=== PATIENT | male | born 1950 | race Hispanic/Latino ===

== ENCOUNTER → 2019-01-13 | Outpatient (CLI) | payer MEDICARE ==
[~2019-01-13] MED LIST: LOSARTAN POTASS25 MG PO; NOVOLIN N100 UNIT/1 SC; TENOFOVIR PO
[2019-01-13 13:13] LABS: BASOPHILS % 0.3 % (0.0-1.0); EOSINOPHILS # (AUTO) 0.1 (0.0-0.4); EOSINOPHILS % 3.4 % (0.0-6.0); HEMATOCRIT 33.3 % (38.2-49.6); HEMOGLOBIN 9.5 g/dL (14.0-18.0); LYMPHOCYTES # (AUTO) 0.9 (1.0-3.2); LYMPHOCYTES % 30.5 % (18.0-39.1); MEAN CORPUSCULAR HEMOGLOBIN 19.8 pg (28-32); MEAN CORPUSCULAR HGB CONC 28.5 g/dL (31-35); MEAN CORPUSCULAR VOLUME 69.4 fL (81-99); MONOCYTES # (AUTO) 0.4 (0.2-0.8); MONOCYTES % 12.9 % (4.4-11.3); NEUTROPHILS # (AUTO) 1.6 (2.1-6.9); NEUTROPHILS % 52.9 % (38.7-80.0); PLATELET COUNT 81 x10e3/uL (140-360); RED CELL DISTRIBUTION WIDTH 22.8 % (11.7-14.4)
[2019-01-13 13:39] LABS: ALANINE AMINOTRANSFERASE 27 IU/L (0-55); ALBUMIN/GLOBULIN RATIO 0.4 (0.8-2.0); ALKALINE PHOSPHATASE 132 IU/L (40-150); ANION GAP 11.5 mmol/L (8-16); BLOOD UREA NITROGEN 10 mg/dL (7-26); BUN/CREATININE RATIO 15 (6-25); CALCIUM 7.3 mg/dL (8.4-10.2); CARBON DIOXIDE 22 mmol/L (22-29); CHLORIDE 111 mmol/L (98-107); CREATININE, SERUM 0.68 mg/dL (0.72-1.25); EST GLOMERULAR FILTRATION RATE > 60 ML/MIN (60-); GLUCOSE 86 mg/dL (74-118); POTASSIUM 3.5 mmol/L (3.5-5.1); SODIUM 141 mmol/L (136-145)
[2019-01-13 14:11] LABS: INR 1.55; PROTHROMBIN TIME 19.2 seconds (11.9-14.5)
[2019-01-13 14:12] LABS: PARTIAL THROMBOPLASTIN TIME 43.5 seconds (23.8-35.5)
== END | disposition home or self-care (01) ==
LOC: RAD 05:00 → OR 01-18 11:19 → EDSTATUS 01-18 13:00 → EDSEX 01-18 13:00
PROVIDERS: ATTEND Internal Medicine Gastroenterology
DX: Z12.11 Encounter for screening for malignant neoplasm of colon (principal); B19.20 Unspecified viral hepatitis C without hepatic coma; K44.9 Diaphragmatic hernia without obstruction or gangrene
CPT/HCPCS: 36415; 80053; 85025; 85610; 85730; 93005

== ENCOUNTER → 2019-02-21 | Outpatient (CLI) | payer MEDICARE, OTHER ==
--- NOTE | 2019-02-21 13:27 | Diagnostic Imaging Report ---
EXAMINATION: Abdominal ultrasound. CLINICAL INDICATION: Cirrhosis, anemia COMPARISON: None DISCUSSION: Transverse and longitudinal images of the upper abdomen were obtained. The liver is normal in size measuring 12.7 centimeters in length in the right midclavicular line and shows increased echogenicity. Nodular contour with enlargement of the left lobe. A right hepatic mass measuring 4.4 cm with hypoechoic halo. No intrahepatic biliary dilatation. The common bile duct measures 0.4 cm.. The main portal vein is normal in caliber and measures 12 mm with normal hepatopetal flow. The gallbladder wall is thickened secondary to the underlying cirrhosis. Gallstone present. Negative Simpson sign. Pancreas poorly visualized. The spleen is normal in echogenicity and size measuring 11.3 centimeters in length. The right kidney measures 9.3 centimeters in length and the left kidney measures 10.1 centimeters. There is normal renal cortical echogenicity and no hydronephrosis, solid mass or shadowing calculi. Vessels poorly visualized. Mild ascites. IMPRESSION: Cirrhotic liver with mild ascites. 4.4 cm right hepatic lobe mass. Recommend MRI or CT of the abdomen with and without contrast for evaluation of possible HCC. Cholelithiasis. Signed by: Dr. Donis Keating M.D. on 02/21/2019 1:23 PM
== END ==
LOC: RAD 10:45
PROVIDERS: ATTEND Internal Medicine Gastroenterology
DX: K74.69 Other cirrhosis of liver (principal); E11.9 Type 2 diabetes mellitus without complications; D64.9 Anemia, unspecified; E66.9 Obesity, unspecified; Z71.3 Dietary counseling and surveillance
CPT/HCPCS: 76700